=== PATIENT | male | born 1980 | race African-American/Black ===

== ENCOUNTER 2019-03-16 09:42 | Emergency (ER) | payer OTHER ==
--- NOTE | 2019-03-16 09:57 | EDM.PDOC ---
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 Past medical history: As per history of present illness and as reviewed below otherwise noncontributory. Surgical history: As per history of present illness and as reviewed below otherwise noncontributory. Social history: No reported history of drug or alcohol abuse. Family history: As per history of present illness and as reviewed below otherwise noncontributory. Physical exam: HEENT: Atraumatic, normocephalic, pupils reactive, negative for conjunctival pallor or scleral icterus, mucous membranes moist, throat clear, neck supple, nontender, trachea midline. Lungs: Clear to auscultation, breath sounds equal bilaterally, chest nontender. Heart: S1S2, regular, negative for clicks, rubs, or JVD. Abdomen: Soft, nondistended, nontender. Negative for masses or hepatosplenomegaly. Negative for costovertebral tenderness. Pelvis: Stable nontender. Genitourinary: Deferred. Rectal: Deferred. Extremities: Atraumatic, negative for cords or calf pain. Neurovascular unremarkable. Neuro: Awake, alert, oriented. Cranial nerves II through XII unremarkable. Cerebellum unremarkable. Motor and sensory unremarkable throughout. Exam nonfocal. Diagnostics: [Pelvis 1 view Lumbar spine ] Therapeutics: [] Impression: [Fall ] Low Back pain Definitive disposition and diagnosis as appropriate pending reevaluation and review of above. back Pain Score (Numeric/FACES): 10 - Related Data Allergies Allergy/AdvReac Type Severity Reaction Status Date / Time No Known Allergies Allergy Verified 03/16/19 09:50 Home Meds: Home Meds . [No Known Home Meds] 03/16/19 [History] Levothyroxine Sodium [Synthroid] 200 mcg PO DAILY 03/16/19 [History] Past Medical History Endocrine/Metabolic History: Reports: Hypothyroidism Social & Family History - Family History Family Medical History: Noncontributory - Tobacco Use Smoking Status *Q: Never Smoker - Caffeine Use Caffeine Use: Reports: Coffee, Soda - Recreational Drug Use Recreational Drug Use: No ED ROS GENERAL - Review of Systems Review Of Systems: See Below ED EXAM, GENERAL - Physical Exam Exam: See Below Course - Vital Signs Last Recorded V/S: Last Vital Signs Temp 97.2 F 03/16/19 09:52 Pulse 81 03/16/19 09:52 Resp 18 03/16/19 09:52 BP 126/80 03/16/19 09:52 Pulse Ox 97 03/16/19 09:52 Departure - Departure Time of Disposition: 11:24 Disposition: Home, Self-Care 01 Condition: Good Clinical Impression: Low back pain - Discharge Information Referrals: PCP,None [Primary Care Provider] - Forms: ED Department Discharge Additional Instructions: The following information is given to patients seen in the emergency department who are being discharged to home. This information is to outline your options for follow-up care. We provide all patients seen in our emergency department with a follow-up referral. The need for follow-up, as well as the timing and circumstances, are variable depending upon the specifics of your emergency department visit. If you don't have a primary care physician on staff, we will provide you with a referral. We always advise you to contact your personal physician following an emergency department visit to inform them of the circumstance of the visit and for follow-up with them and/or the need for any referrals to a consulting specialist. The emergency department will also refer you to a specialist when appropriate. This referral assures that you have the opportunity for follow-up care with a specialist. All of these measure are taken in an effort to provide you with optimal care, which includes your follow-up. Under all circumstances we always encourage you to contact your private physician who remains a resource for coordinating your care. When calling for follow-up care, please make the office aware that this follow-up is from your recent emergency room visit. If for any reason you are refused follow-up, please contact the [facility] emergency department at and asked to speak to the emergency department charge nurse.
--- NOTE | 2019-03-16 10:55 | CR ---
INDICATION: Pain. TECHNIQUE: Single AP view of the pelvis COMPARISON: None FINDINGS: No fracture, dislocation or other acute osseous abnormality is seen. No appreciable lower lumbar spine spondylosis changes are seen. IMPRESSION: Negative exam. Dictated by Roland Millan MD @ Mar 16 2019 10:51AM Signed by Dr. Roland Millan @ Mar 16 2019 10:53AM
--- NOTE | 2019-03-16 11:23 | CR ---
INDICATION: Back pain TECHNIQUE: 3-view lumbar spine. COMPARISON: none FINDINGS: The lumbar vertebrae are anatomically aligned. The disc spaces are of normal height. The facet joints appear intact. There is no evidence of a fracture or intrinsic bone lesion. The SI joints appear normal. The paraspinal soft tissues appear normal. IMPRESSION: Negative lumbar spine. Dictated by Nikhil French MD @ Mar 16 2019 11:21AM Signed by Dr. Nikhil French @ Mar 16 2019 11:22AM
== END 2019-03-16 11:30 | disposition home or self-care (01) ==
LOC: MW.ED 09:42
DX: M54.5 Low back pain (principal); E03.9 Hypothyroidism, unspecified; Z79.899 Other long term (current) drug therapy
CPT/HCPCS: 72100; 72100-26; 72170; 72170-26; 99283; 99283-25